=== PATIENT | female | born 1990 | race Caucasian/White ===

== ENCOUNTER 2021-01-25 16:27 | Emergency (ER) | payer OTHER ==
[2021-01-25 17:08] VITALS: BMI 32.4
[2021-01-25] MEDS ORDERED: CASIRIVIMAB/IMDEVIMAB 10 ML in SODIUM CHLORIDE 100 ML IVPB ONE (17:30)
[2021-01-25 18:02] LABS: HEMATOCRIT 40.9 % (32.4-45.2); HEMOGLOBIN 13.9 GM/dL (10.7-15.3); MCH 28.9 pg (25.7-33.7); MEAN CELL VOLUME 84.9 fl (80-96); MEAN PLT VOLUME 8.1 fl (7.5-11.1); PLATELET COUNT 247 10^3/uL (134-434); RBC 4.82 M/mm3 (3.60-5.2); RDW 13.6 % (11.6-15.6); WHITE BLOOD COUNT 4.5 K/mm3 (4.0-10.0)
[2021-01-25 18:33] LABS: BLOOD UREA NITROGEN 8.8 mg/dL (7-18)
[2021-01-25 18:36] LABS: CREATININE 0.7 mg/dL (0.55-1.3)
[2021-01-25 20:06] VITALS: BP 117/78; PULSE 78; TEMP 98.9
== END 2021-01-25 20:09 | disposition home or self-care (01) ==
LOC: JER 16:27 → JCOVINFU 16:27
PROC: 3E033GC Introduction of Other Therapeutic Substance into Peripheral Vein, Percutaneous Approach (ICD-10-PCS; principal; 2021-01-25)
DX: U07.1 COVID-19 (principal)
CPT/HCPCS: 36415; 80048; 85027; 99284-25; Q0240